=== PATIENT | male | born 1990 | race Caucasian/White ===

== ENCOUNTER 2020-05-30 20:56 | Emergency (ER) | payer SELFPAY ==
[~2020-05-30] VITALS: Ht 180.3 cm; Wt 90.9 kg
[2020-05-30 21:54] LABS: BASOPHILS # (AUTO) 0.1 X10'3 (0-0.2); BASOPHILS % (AUTO) 1.1 % (0-1); EOSINOPHILS % (AUTO) 0.6 % (0-6); HEMATOCRIT 38.3 % (42.0-52.0); LYMPHOCYTES % (AUTO) 31.2 % (21-51); MEAN CORPUSCULAR HEMOGLOBIN 32.6 PG (27.0-31.0); MEAN CORPUSCULAR VOLUME 95.8 FL (78-98); MONOCYTES # (AUTO) 0.5 X10'3 (0-0.9); MONOCYTES % (AUTO) 8.1 % (2-12); NEUTROPHILS # (AUTO) 3.8 X10'3 (1.8-7.7); PLATELET COUNT 323 X10'3 (140-440); RED CELL DISTRIBUTION WIDTH 13.9 % (11.5-14.5); WHITE BLOOD COUNT 6.5 X10'3 (4.5-11.0)
[2020-05-30 22:09] LABS: ALANINE AMINOTRANSFERASE 74 U/L (12-78); ALBUMIN 3.5 G/DL (3.4-5.0); ALBUMIN/GLOBULIN RATIO 1.1 (1.1-1.5); ALKALINE PHOSPHATASE 50 IU/L (46-116); ANION GAP 12 (8-16); ASPARTATE AMINO TRANSFERASE 55 U/L (10-37); BILIRUBIN,TOTAL 0.2 MG/DL (0.1-1.0); BLOOD UREA NITROGEN 8 MG/DL (7-18); CALCIUM 7.6 MG/DL (8.5-10.1); CHLORIDE 103 MMOL/L (99-107); CREATININE 0.89 MG/DL (0.60-1.10); GLUCOSE 109 MG/DL (70-104); POTASSIUM 3.9 MMOL/L (3.5-5.1); SODIUM 140 MMOL/L (135-145); TOTAL CARBON DIOXIDE 24.8 MMOL/L (24-32); TOTAL PROTEIN 6.6 G/DL (6.4-8.2); eGFR > 90 ML/MIN
[2020-05-30] MEDS ORDERED: normal saline 1000ML IV soln IVB ONE (22:20)
[2020-05-30] MEDS ORDERED: thiamine 100mg/ml 2ml inj. IV ONE (22:20)
[2020-05-30] MEDS ORDERED: ringers solution, lactated 1000ml IV soln IV ONE (22:20)
[2020-05-30] MEDS ORDERED: ondansetron/PF 4mg/2ml inj IV ONE (22:50)
--- NOTE | 2020-05-30 22:52 | NUR ---
pt back from [place] he awoke briefly, encouraged him to sleep, covered him up again.
--- NOTE | 2020-05-30 23:19 | NUR ---
he states he doesn't remember being in an alley or even know how he got here. Pt was told how he got here. He says he was at [facility] earlier today. He states he did loose his job. He said that [employer] was hard to work for. He said that he had his truck packed with packages, was heading out to his route and just could't do it and drove it back and parked it and that was that. He made reference to this happening in March though.
--- NOTE | 2020-05-31 00:03 | NUR ---
Pt got up out of bed, walked a few steps. I stopped him. He had pulled his IV out. Blood drops all over the floor, end of bed. He wants to walk out. Security notified. Pt doesn't remember any conversations with me previously. He doesn't remember the lengthy conversation about how he got here. He says he will call for a ride but then tells security he has no one.
--- NOTE | 2020-05-31 00:15 | NUR ---
hes in his room.
[2020-05-31 00:24] LABS: URINE AMPHETAMINE SCREEN NEGATIVE (Neg); URINE BARBITUATE SCREEN NEGATIVE (Neg); URINE BENZODIAZEPINES SCREEN NEGATIVE (Neg); URINE CANNABINOID SCREEN NEGATIVE (Neg); URINE COCAINE SCREEN NEGATIVE (Neg); URINE METHADONE SCREEN NEGATIVE (Neg); URINE OPIATE SCREEN NEGATIVE (Neg); URINE PHENCYCLIDINE SCREEN NEGATIVE (Neg)
--- NOTE | 2020-05-31 02:02 | NUR ---
he remains alseep and his RR is 18
[2020-05-31 03:29] VITALS: BP 101/68
== END 2020-05-31 03:31 | disposition home or self-care (01) ==
LOC: ER 20:57
DX: F10.129 Alcohol abuse with intoxication, unspecified (principal); R41.82 Altered mental status, unspecified; Y90.0 Blood alcohol level of less than 20 mg/100 ml
CPT/HCPCS: 36415; 70450; 80053; 80305; 80320; 85025; 96361; 96374; 96375; 99284; J2405; J3411; J7030; J7120